=== PATIENT | female | born 1985 ===

== ENCOUNTER 2017-07-05 03:54 | Inpatient (IN) | payer MEDICAID ==
[2017-07-05 04:21] VITALS: BMI 36.2
[2017-07-05] MEDS ORDERED: Penicillin G 5 Million Unit Vial IVPB ONE (05:21)
[2017-07-05] MEDS ORDERED: Oxytocin 30 UNIT 30 UNITS/500 ML BAG IV SCH (05:30)
[2017-07-05] MEDS ORDERED: Lactated Ringer's 1,000 ML IV SCH ×2 (05:30)
--- NOTE | 2017-07-05 05:33 | OBHP ---
Datetime: 07/05/2017 05:12 IP Adm Impression: Term, intrauterine ; Ruptured Membranes IP Admit Plan: Admit to unit; Initiate labor protocol Admit Comment, IP Provider: 31 y.o. , LMP 10/05/16, TO 07/14/17, EGA 38w 5d confirmed by sono at 8w 3d C/O ROM at 0308 hour "gush of fluid" and onset of contractions at 0320 hours, pain sca le 3/10 every 3-5 minutes. 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 Denies STIs or abnormal Pap PMH: denies PSH: denies NKDA Meds: PNV and iron - each QD Soc Hx: denies tobacco , ilicit drug or EtOH use. x 1 yr; together x 3 years. Lives with naomie duval. 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 Father alive 79 - HTN. (+) fam h/o lung CA P.E.: as above. WD in NAD. Awake, alert, oriented totime, person and place. Pleasant acooperative . Accompanied by and her mother Assessment: 31 y.o. P0, 38w 5d, low KAY suggestive and confirmatiory of SROM; entering active labo r. GBS unknown. Category 1 tracing. Clinically stable. Plan: 1) Admit 2) NPO 3) IVFs 4) Admission labs 5) Continuous EFM 6) Penicillin 7) Pitocin 8) Pain management, upon request 9) Anticipate vaginal delivery Pelvic Type - PN: Adequate Extremities - PN: Normal Abdomen - PN: Normal Back - PN: Normal Breast - PN: Not Done Lungs - PN: Normal Heart - PN: Normal Thyroid - PN: Not Done Neurologic - PN: Normal HEENT - PN: Normal General - PN: Normal Weight - Estimated: 3632 Presentation-Admit: Vertex FHR - Baseline A Provider: 145 Contraction Comments Provider: q 5 -6 minutes Comments, ACOG Physical Exam: Abdomen: Gravid. Firm with contractions. Fundal height 39 cm Perieneum: dry Spec: no pooling (+) blood; nitrazine (+) Bedside sono: ceph, anterior placenta; (+) FM; (+) FBM; (+) Tone; KAY 6.09cm (MVP 3.24cm) All other systems reviewed and are negative Gestation - Est Wks by US: 38w 5d IP Hx Assessment: The History has been Reviewed and is Current EGA AdmitDate IP: 38.5 Vital Signs Provider: Reviewed; Within Normal Limits IP Indication for Induction: Not Applicable IP Chief Complaint: Uterine contractions; Suspected ruptured membranes NICHD Variability Prov Fetus A: Moderate 6-25bpm NICHD Accel Fetus A IP Provider: [id number] FHR Category Provider Fetus A: Category I NICHD Decel Fetus A IP Provider: None Dilatation, Provider: 4 Effacement, Provider: 60 Station, Provider: -3 Genitourinary Exam: Normal DTRs - PN: Not Done
[2017-07-05 06:09] LABS: BASO % 0.3 % (0.0-2.0); EOS # 0.1 K/uL (0.0-0.7); EOS % 0.9 % (0.0-4.0); HEMATOCRIT 31.9 % (34.0-47.0); LYMPH # 1.4 K/uL (1.0-4.3); LYMPH % 18.1 % (20.0-40.0); MEAN CELL VOLUME 86.6 fL (81.0-99.0); MEAN CORPUSCULAR HGB CONC 33.4 g/dL (33.0-37.0); MEAN PLATELET VOLUME 10.7 fL (7.2-11.7); MONO # 0.5 K/uL (0.0-0.8); MONO % 6.3 % (0.0-10.0); RED CELL DISTRIBUTION WIDTH 14.1 % (11.5-14.5)
[2017-07-05 06:12] LABS: RBC URINE 1 /hpf (0-3); URINE BACTERIA OCC (<OCC); URINE BILIRUBIN NEGATIVE (NEGATIVE); URINE BLOOD NEGATIVE (NEGATIVE); URINE COLOR Straw (YELLOW); URINE GLUCOSE (UA) NORMAL (Normal); URINE KETONE NEGATIVE (NEGATIVE); URINE LEUKOCYTE ESTERASE NEG Leu/uL (Negative); URINE PROTEIN NEGATIVE (NEGATIVE); URINE UROBILINOGEN NORMAL mg/dL (0.2-1.0); WBC URINE 2 /hpf (0-5)
[2017-07-05 06:26] LABS: ALKALINE PHOSPHATASE 109 U/L (38-126); ALT/SGPT 30 U/L (9-52); AST/SGOT 31 U/L (14-36); BILIRUBIN,TOTAL 0.6 mg/dL (0.2-1.3); BLOOD UREA NITROGEN 10 mg/dL (7-17); CALCIUM 8.6 mg/dl (8.6-10.4); CARBON DIOXIDE 21 mmol/L (22-30); CHLORIDE 101 mmol/L (98-107); GFR AFRICAN-AMERICAN > 60; GLUCOSE,RANDOM 75 mg/dL (65-105); POTASSIUM 3.7 mmol/L (3.6-5.2); SODIUM 131 mmol/L (132-148); TOTAL PROTEIN 6.2 g/dL (6.3-8.3)
[2017-07-05 06:42] LABS: ALB/GLOB RATIO 1.2 (1.0-2.1)
[2017-07-05] MEDS ORDERED: Bupivacaine 0.125%/FentaNYL 200 ML EPI ONE (09:26)
[2017-07-05] MEDS: Penicillin G Potassium 2.5 MU in Dextrose 5% In Water 50 ML IV SCH ×2 (10:00→22:07)
--- NOTE | 2017-07-05 11:19 | OBDS ---
DELIVERY PERSONNEL Delivery Doctor: Brigido Weems MD Finisher Special Stocks: Lamonte Aliya RN MATERNAL INFORMATION Delivery Anesthesia: Epidural Medications in Delivery: Pitocin 30 units IV Estimated Blood Loss (ml): 300 Placenta Cultured: No Maternal Complications: None RN Comments: Liveborn Baby Girl. 9-9 Provider Comments: baby deliverd in [place]. end clean no com LABOR SUMMARY EDC: 07/14/2017 00:00 No. Babies in Womb: 1 Attempted: No Labor Anesthesia: Epidural LABOR INFORMATION Reason for Induction: Not Applicable Onset of Labor: 07/05/2017 03:00 Oxytocin: Augmentation Group B Beta Strep: Done, Result Unknown (Annotations: as per patient. but no noted in . Juliet ble to get result. Clinic closed. ) Antibiotics # of Doses: 2 Antibiotics Time of Last Dose: Pen G 2.5 MU IV @1000 Steroids Given: None Reason Steroids Not Administered: Not Applicable MEMBRANES Membranes Rupture Method: Spontaneous Rupture of Membranes: 07/05/2017 03:00 Length of Rupture (hrs): 8.08 Amniotic Fluid Color: Clear Amniotic Fluid Amount: Moderate Amniotic Fluid Odor: Normal VAGINAL DELIVERY Episiotomy: None Laceration Extension: Second Degree Laceration Type: Perineal Initial Vag Sponge Count: 10 Initial Vag Sharps Count: 2 BABY A INFORMATION Delivery Date/Time: 07/05/2017 11:05 Method of Delivery: Vaginal Born in Route : No : N/A Forceps: N/A Vacuum Extraction: N/A SHOULDER DYSTOCIA BABY A Infant Delivery Date/Time: 07/05/2017 11:05 PRESENTATION/POSITION BABY A Presentation: Cephalic Cephalic Presentation: Vertex Vertex Position: Left Occipital Anterior Breech Presentation: N/A PLACENTA INFORMATION BABY A Placenta Method of Delivery: Spontaneous Placenta Status: Delivered INFANT INFORMATION BABY A Gestational Age at Delivery: 38.6 Gestational Status: Term Infant Outcome : Liveborn Condition : Stable Infant Sex: Female IDENTIFICATION/MEDS BABY A ID Band Number: [id number] Sensor Number: [id number] CORD INFORMATION BABY A Nuchal Cord : N/A
[2017-07-05] MEDS ORDERED: Oxycodone/Acetaminophen 5/325 mg Tab PO PRN (11:25)
[2017-07-05] MEDS ORDERED: Benzocaine/Menthol 20%-0.5% Topical Spray (60 ml) TOP PRN (11:25)
[2017-07-05] MEDS ORDERED: Oxytocin 30 UNIT 1,000 ML IV SCH (11:30)
[2017-07-06 08:08] LABS: HEMATOCRIT 28.2 % (34.0-47.0); MEAN CORPUSCULAR HEMOGLOBIN 29.2 pg (27.0-31.0); MEAN CORPUSCULAR HGB CONC 33.2 g/dL (33.0-37.0); MEAN PLATELET VOLUME 10.3 fL (7.2-11.7); RED CELL DISTRIBUTION WIDTH 14.5 % (11.5-14.5); WHITE BLOOD COUNT 10.1 K/uL (4.8-10.8)
--- NOTE | 2017-07-06 08:53 | OBPPN ---
Datetime: 07/06/2017 07:07 PP Pain Prov: Within normal limits PP Nausea Prov: Denies PP Flatus Prov: Yes PP BM Prov: Yes PP Comments Phys Exam Prov: Fundus firm at umbilicus PP Impression Prov: Normal progression PP Plan Prov: Continue present management PP Progress Note Prov: Patient seen and examined at bedside. Per nursing no acute events overnight. Patient is doing well, pain is controlled. Lochia is mild. Patient is ambulating and tolerating diet. Urinating without difficulty. Passing flatus and BM. Breast feeding. Denies headache, dizziness, cp, palpitations, sob, urinating without difficulty. VS: 103/69 101 99.7 Gen: AAOx3 Abd: soft, fundus firm at umbilicus Ext: No clubbing, cyanosis, edema; no calf tenderness Labs: 8.0>10.7/31.9<187 F/U am CBC A positive Rubella immune A/P: 31 year old at 38w5d s/p with second degree laceration PPD#1 1. Stable, afebrile 2. Pain control - tylenol and motrin prn 3. F/U am cbc 4. Encourage ambulation and hydration 5. Encourage breast feeding 6. Continue routine care 7. Anticipate d/c home tomorrow 8. Plan d/w attending Serene Hurtado DO PGY-1 dr german agrees with above Vital Signs Provider PP: Reviewed; Within Normal Limits
[2017-07-07 07:39] VITALS: BP 111/72; PULSE 107; RESP 18; TEMP 98.6; O2SAT 97
[2017-07-07] MEDS ORDERED: Influenza Vaccine 60 mcg/0.5 mL SYR (4YR UP) IM ONE (10:00)
--- NOTE | 2017-07-07 19:47 | OBDCSUM ---
Datetime: 07/07/2017 09:58 Discharged to, Provider: Home Follow up at, Provider: [facility] Disch Instr Activity: Normal activity Disch Instr Diet: Regular Discharge Instructions, Provider: Routine instructions given Discharge Diagnosis, Provider: Term Delivered Discharge Time: 07/07/2017 12:00 Follow up in weeks, Provider: 6 weeks Disch Referrals: None Contraception discussed, Prov: Yes Disch Activity Restrictions: No lifting; Minimize stair-climbing; No sexual activity; Nothing in vag tomas - Winner, tampons, douche Discharge Comment, Provider: S/P , Clinically Stable Discharge Diagnosis Prov Other: S/P , Clinically Stable
--- NOTE | 2017-07-07 19:50 | OBPPN ---
Datetime: 07/07/2017 08:31 PP Pain Prov: Within normal limits PP Nausea Prov: Denies PP Flatus Prov: Yes PP BM Prov: Yes PP Impression Prov: Normal progression PP Plan Prov: Continue present management; Discharge PP Progress Note Prov: Patient seen and examined at bedside. Per nursing no acute events overnight. Patient is doing well, pain is controlled. Lochia is mild. Patient is ambulating and tolerating diet. Urinating without difficulty, passing flatus and BM. Breast feeding. Denies headaches, dizziness, cp , palpitations, sob, urinary symptoms VS: 99/55 90 98.3 Gen: AAOx3 Abd: Soft, fundus firm below umbilicus Ext: No clubbing, cyanosis, edema; no calf tenderness Labs: 8.0>10.7/31.9<187 10.1>9.4/28.2<176 A positive Rubella immune A/P: 31 year old at 38w5d s/p with second degree perineal laceration PPD#2 1. Stable, afebrile 2. Pain control - motrin and tylenol prn 3. Encourage ambulation and hydration 4. Encourage breast feeding 5. Continue routine care 6. D/C home today - pelvic rest x 6 weeks, f/u with clinic in 6 weeks 7. Plan d/w attending Serene Hurtado DO PGY-1 Pt seen with resident and qagrees with the above Vital Signs Provider PP: Reviewed
== END 2017-07-07 12:00 | disposition home or self-care (01) | DRG 373 ==
LOC: C.EROB 03:54 → C.4D 04:55 → C.4M 14:00
PROVIDERS: ADMIT Obstetrics & Gynecology; ATTEND Obstetrics & Gynecology
PROC: 10E0XZZ Delivery of Products of Conception, External Approach (ICD-10-PCS; principal; 2017-07-05)
PROC: 0KQM0ZZ Repair Perineum Muscle, Open Approach (ICD-10-PCS; 2017-07-05)
DX: O99.02 Anemia complicating childbirth (principal); D64.9 Anemia, unspecified; O70.1 Second degree perineal laceration during delivery; Z3A.38 38 weeks gestation of pregnancy; Z37.0 Single live birth